=== PATIENT | female | born 1940 | race African-American/Black ===

== ENCOUNTER 2018-03-03 12:16 | Inpatient (IN) | payer MEDICARE, OTHER ==
[~2018-03-03] VITALS: Ht 170.2 cm; Wt 89.8 kg
[~2018-03-03 12:16] MED LIST: GUAI1TBM14 PO; OLME20TA14 PO; TRIA1CAP35 PO
[2018-03-03 15:29] LABS: BASOPHILS % 0.4 % (0.0-2.0); EOSINOPHILS % 0.8 % (0.0-5.0); HEMATOCRIT. 40.3 % (36.0-48.0); HEMOGLOBIN. 13.4 g/dL (12.0-16.0); LYMPHOCYTES % 41.8 % (20.0-50.0); MEAN CORPUSCULAR HEMOGLOBIN 29.4 pg (28.0-32.0); MEAN CORPUSCULAR VOLUME 88.3 fL (81.0-99.0); MEAN PLATELET VOLUME 9.3 fl (7.4-10.4); MONOCYTES % 7.8 % (2.0-8.0); NEUTROPHILS % 49.2 % (40.0-76.0); PLATELET 213 x1000/uL (130-400); RED BLOOD CELL COUNT 4.56 mill/uL (4.2-5.4); RED CELL DISTRIBUTION WIDTH 14.3 % (11.6-14.6)
[2018-03-03 15:36] LABS: CHLORIDE 106 mEq/L (98-107)
[2018-03-03 15:40] LABS: D-DIMER 1.3 mg/L FEU (<0.50); PARTIAL THROMBOPLASTIN TIME 25.4 sec (23.4-31.0); PROTHROMBIN TIME 10.2 sec (9.1-11.1)
[2018-03-03] MEDS ORDERED: IOHEXOL-350 100 ML BOTTLE ONE (16:42)
[2018-03-03 17:27] LABS: BG BASE EXCESS -5.2 mmol/L (-2.0-2.0); BG CARBOXYHEMOGLOBIN 0.7 % (0.5-1.5); BG DEOXYHEMOGLOBIN 4.3 % (0.0-5.0); BG FRACTION INSPIRED OXYGEN 21; BG HCO3 ACT 19.4 mmol/L (22.0-26.0); BG OXYGEN SATURATION 95.7 % (92.0-98.5); BG PCO2 35.1 mmHg (35.0-45.0); BG PH 7.361 (7.350-7.450); BG PO2 87.9 mmHg (75.0-100.0); BG SAMPLE SITE RIGHT RADIAL; BG TOTAL HEMOGLOBIN 13.9 g/dL (12.0-18.0); BG VENT MODE ROOM AIR
[2018-03-03] MEDS ORDERED: ACETAMINOPHEN 325MG TABLET PO PRN (20:15)
[2018-03-03] MEDS ORDERED: IPRATROPIUM/ALBUTEROL 0.5-3(2.5)MG/3ML NEB INH PRN (20:15)
[2018-03-03] MEDS ORDERED: CLONIDINE 0.1MG TABLET PO PRN (20:15)
[2018-03-03] MEDS ORDERED: GUAIFENESIN 200MG/10ML SUGAR FREE UDC PO PRN (20:15)
[2018-03-03] MEDS ORDERED: DIPHENHYDRAMINE 50MG/ML VIAL IV PRN (20:15)
[2018-03-03 22:20] VITALS: BP 154/79
[2018-03-03] MEDS ORDERED: LOSARTAN POTASSIUM 100 MG TABLET PO SCH (22:27)
[2018-03-03] MEDS ORDERED: BUDESONIDE 0.5MG/2ML NEB HHN SCH (22:28)
[2018-03-03] MEDS: SODIUM CHLORIDE 0.9% INJ 3ML FLUSH IVF SCH (23:03)
[2018-03-03] MEDS ORDERED: TEMAZEPAM 15MG CAPSULE PO PRN (23:30)
[2018-03-03] MEDS ORDERED: ALPRAZOLAM 0.25 MG TABLET PO PRN (23:30)
[2018-03-04] VITALS: BP 123/51
[2018-03-04 04:00] VITALS: BP 125/60
[2018-03-04] MEDS: SODIUM CHLORIDE 0.9% INJ 3ML FLUSH IVF SCH (06:03)
[2018-03-04 08:00] VITALS: BP 123/60
[2018-03-04] MEDS ORDERED: TRIAMTERENE/HYDROCHLOROTHIAZIDE 37.5/25MG CAPSULE PO SCH (09:00)
[2018-03-04 12:00] VITALS: BP 145/81
== END 2018-03-04 12:00 | disposition home or self-care (01) | DRG 880 ==
LOC: ER 12:16 → ENRESERV 21:33 → 6WST 22:23
PROVIDERS: ADMIT Internal Medicine; ATTEND Internal Medicine
DX: F41.9 Anxiety disorder, unspecified (principal); I10 Essential (primary) hypertension; Z96.653 Presence of artificial knee joint, bilateral; Z82.49 Family history of ischemic heart disease and other diseases of the circulatory system; Z86.711 Personal history of pulmonary embolism; Z86.718 Personal history of other venous thrombosis and embolism; Z88.8 Allergy status to other drugs, medicaments and biological substances; Z88.7 Allergy status to serum and vaccine; Z79.899 Other long term (current) drug therapy
CPT/HCPCS: 36415; 36600; 71045; 71275; 80053; 82375; 82805; 83880; 84484; 85025; 85379; 85610; 85730; 93005; 93880; 93970; 99285; Q9967

== ENCOUNTER 2021-04-11 02:17 | Emergency (ER) | payer MEDICARE, MEDICAID ==
[~2021-04-11] VITALS: Ht 170.2 cm; Wt 87.0 kg
[~2021-04-11 02:17] MED LIST changes: +OLME20TA13 PO; -OLME20TA14 PO
[2021-04-11] MEDS ORDERED: ACETAMINOPHEN 325MG TABLET PO ONE (02:45)
[2021-04-11] MEDS ORDERED: ACET-2708 MT (04:52)
[2021-04-11 05:11] VITALS: BP 173/95
== END 2021-04-11 05:19 | disposition home or self-care (01) ==
LOC: ER 02:17
DX: S00.83XA Contusion of other part of head, initial encounter (principal); I10 Essential (primary) hypertension; Z88.5 Allergy status to narcotic agent; W01.0XXA Fall on same level from slipping, tripping and stumbling without subsequent striking against object, initial encounter; Y93.89 Activity, other specified; Y92.89 Other specified places as the place of occurrence of the external cause; Y99.8 Other external cause status
CPT/HCPCS: 70486; 99285

== ENCOUNTER 2021-04-15 20:41 | Emergency (ER) | payer MEDICARE, MEDICAID ==
[~2021-04-15] VITALS: Ht 167.6 cm; Wt 86.0 kg
[~2021-04-15 20:41] MED LIST changes: +ACET-2708 MT
[2021-04-15] MEDS ORDERED: SODIUM CHLORIDE 0.9% 1,000 ML IV ONE (23:00)
[2021-04-15] MEDS ORDERED: MORPHINE SULFATE 2 MG/ML CPJ (NOT FOR IM USE) IV ONE (23:00)
[2021-04-15 23:43] LABS: BASOPHILS % 0.2 % (0.0-2.0); HEMATOCRIT. 39.4 % (36.0-48.0); HEMOGLOBIN. 12.9 g/dL (12.0-16.0); LYMPHOCYTES % 10.1 % (20.0-50.0); MEAN CORPUSCULAR HEMOGLOBIN 29.5 pg (28.0-32.0); MEAN CORPUSCULAR VOLUME 89.8 fL (81.0-99.0); MEAN PLATELET VOLUME 8.5 fl (7.4-10.4); MONOCYTES % 4.8 % (2.0-8.0); NEUTROPHILS % 84.9 % (40.0-76.0); PLATELET 152 x1000/uL (130-400); RED BLOOD CELL COUNT 4.39 mill/uL (4.2-5.4); RED CELL DISTRIBUTION WIDTH 14.4 % (11.6-14.6)
[2021-04-15 23:47] LABS: CHLORIDE 103 mEq/L (98-107)
[2021-04-15 23:48] LABS: INR 1.1; PROTHROMBIN TIME 11.8 sec (9.6-11.0)
[2021-04-16 00:23] LABS: CLARITY URINE TURBID (CLEAR); COLOR URINE RED (YELLOW); KETONES URINE 1+ (NEGATIVE); LEUKOCYTE ESTERASE URINE 1+ (NEGATIVE); NITRITE URINE NEGATIVE (NEGATIVE); OCCULT BLOOD URINE 3+ (NEGATIVE); PROTEIN URINE 3+ (NEGATIVE); SPECIFIC GRAVITY URINE 1.023 (1.005-1.030)
[2021-04-16] MEDS ORDERED: CEFTRIAXONE 1 G PREMIX 50 ML IV ONE (03:30)
[2021-04-16] MEDS ORDERED: KETOROLAC 15MG/ML VIAL IV ONE (03:30)
[2021-04-16] MEDS ORDERED: CEPH500C2 MT (03:52)
[2021-04-16] MEDS ORDERED: PYR200 MT (03:52)
[2021-04-16] MEDS ORDERED: METHOCARBAMOL 500MG TABLET PO ONE (05:00)
[2021-04-16 05:16] VITALS: BP 153/78
== END 2021-04-16 05:18 | disposition home or self-care (01) ==
LOC: ER 20:41
DX: N39.0 Urinary tract infection, site not specified (principal); K62.89 Other specified diseases of anus and rectum; I10 Essential (primary) hypertension; W01.0XXA Fall on same level from slipping, tripping and stumbling without subsequent striking against object, initial encounter; Y93.9 Activity, unspecified; Y92.9 Unspecified place or not applicable; Z88.1 Allergy status to other antibiotic agents; Z88.8 Allergy status to other drugs, medicaments and biological substances
CPT/HCPCS: 36415; 71045; 74176; 80053; 83605; 83690; 85025; 85610; 86850; 86900; 86901; 87086; 93005; 96361; 96365; 96375; 99285; J0696; J1885; J2270; J7030; A4315

== ENCOUNTER 2021-04-17 02:38 | Inpatient (IN) | payer MEDICARE, MEDICAID ==
[~2021-04-17] VITALS: Ht 170.2 cm; Wt 87.1 kg
[~2021-04-17 02:38] MED LIST changes: +CEPH500C2 MT; +PYR200 MT
[2021-04-17] MEDS ORDERED: ACETAMINOPHEN WITH CODEINE 300/30MG TABLET PO ONE (03:15)
[2021-04-17] MEDS ORDERED: MORPHINE SULFATE 10 MG/ML CPJ IM ONE (05:45)
[2021-04-17] MEDS ORDERED: SODIUM CHLORIDE 0.9% 250 ML IV ONE (06:15)
[2021-04-17 06:49] LABS: BASOPHILS % 0.3 % (0.0-2.0); EOSINOPHILS % 0.8 % (0.0-5.0); HEMATOCRIT. 38.2 % (36.0-48.0); HEMOGLOBIN. 12.4 g/dL (12.0-16.0); LYMPHOCYTES % 20.4 % (20.0-50.0); MEAN CORPUSCULAR HEMOGLOBIN 29.2 pg (28.0-32.0); MEAN CORPUSCULAR VOLUME 90.1 fL (81.0-99.0); MEAN PLATELET VOLUME 8.8 fl (7.4-10.4); NEUTROPHILS % 71.5 % (40.0-76.0); PLATELET 126 x1000/uL (130-400); RED BLOOD CELL COUNT 4.24 mill/uL (4.2-5.4)
[2021-04-17 06:54] LABS: CHLORIDE 104 mEq/L (98-107)
[2021-04-17 06:55] LABS: INR 1.1; PROTHROMBIN TIME 11.7 sec (9.6-11.0)
[2021-04-17 10:00] VITALS: BP 140/81
[2021-04-17] MEDS ORDERED: MAGNESIUM/ALUMINUM HYDROXIDE/SIMETHICONE 30ML UDC PO PRN (10:30)
[2021-04-17] MEDS ORDERED: CLONIDINE 0.1MG TABLET PO PRN (10:30)
[2021-04-17] MEDS ORDERED: ONDANSETRON HCL 4MG/2ML INJ IV PRN (10:30)
[2021-04-17] MEDS ORDERED: ACETAMINOPHEN 325MG TABLET PO PRN (10:30)
[2021-04-17] MEDS ORDERED: DOCUSATE SODIUM 100MG CAPSULE PO PRN (10:30)
[2021-04-17] MEDS ORDERED: IPRATROPIUM/ALBUTEROL 0.5-3(2.5)MG/3ML NEB HHN PRN (10:30)
[2021-04-17] MEDS ORDERED: NALOXONE HCL 0.4MG/ML VIAL IV PRN (11:00)
[2021-04-17] MEDS: SODIUM CHLORIDE 0.9% 1,000 ML IV SCH (11:00)
[2021-04-17 12:00] VITALS: BP 110/63
[2021-04-17] MEDS: OMEPRAZOLE 20MG CAPSULE EXTENDED RELEASE PO SCH (12:49)
[2021-04-17] MEDS: ENOXAPARIN 40MG/0.4ML SYR SUBCUT SCH (12:52)
[2021-04-17 16:00] VITALS: BP 114/60
[2021-04-17 16:12] LABS: CLARITY URINE TURBID (CLEAR); COLOR URINE ORANGE (YELLOW); KETONES URINE NEGATIVE (NEGATIVE); LEUKOCYTE ESTERASE URINE 1+ (NEGATIVE); NITRITE URINE POSITIVE (NEGATIVE); OCCULT BLOOD URINE 3+ (NEGATIVE); PROTEIN URINE 2+ (NEGATIVE); SPECIFIC GRAVITY URINE 1.017 (1.005-1.030)
[2021-04-17] MEDS ORDERED: CEFTRIAXONE 1 G PREMIX 50 ML IV SCH (17:00)
[2021-04-17] MEDS ORDERED: CEFTRIAXONE 1,000 MG in DEXTROSE 5% WATER 50 ML IV SCH (18:00)
[2021-04-17] MEDS ORDERED: *PATIENT'S OWN MEDICATION STORAGE XX SCH (19:00)
[2021-04-17] MEDS: CEFTRIAXONE 1,000 MG in DEXTROSE 5% WATER 50 ML IV SCH (20:00)
[2021-04-18] MEDS: HYDROCODONE/ACETAMINOPHEN 5/325MG TABLET PO PRN ×2 (04:32→16:13)
[2021-04-18] MEDS: SODIUM CHLORIDE 0.9% 1,000 ML IV SCH ×2 (04:32→20:29)
[2021-04-18] MEDS: OMEPRAZOLE 20MG CAPSULE EXTENDED RELEASE PO SCH (07:20)
[2021-04-18 08:00] VITALS: BP 107/64
[2021-04-18 08:00] LABS: BASOPHILS % 0.2 % (0.0-2.0); EOSINOPHILS % 0.8 % (0.0-5.0); HEMATOCRIT. 36.1 % (36.0-48.0); HEMOGLOBIN. 11.7 g/dL (12.0-16.0); LYMPHOCYTES % 22.1 % (20.0-50.0); MEAN CORPUSCULAR HEMOGLOBIN 28.8 pg (28.0-32.0); MEAN CORPUSCULAR VOLUME 89.1 fL (81.0-99.0); MEAN PLATELET VOLUME 9.2 fl (7.4-10.4); MONOCYTES % 7.9 % (2.0-8.0); PLATELET 129 x1000/uL (130-400); RED BLOOD CELL COUNT 4.05 mill/uL (4.2-5.4)
[2021-04-18] MEDS: ENOXAPARIN 40MG/0.4ML SYR SUBCUT SCH (10:25)
[2021-04-18 12:00] VITALS: BP 117/77
[2021-04-18] MEDS ORDERED: CYCLOBENZAPRINE 10MG TABLET PO PRN (13:45)
[2021-04-18 16:00] VITALS: BP 124/76
[2021-04-18] MEDS: LIDOCAINE 5% PATCH TOP SCH (16:09)
[2021-04-18] MEDS: ENOXAPARIN 100MG/ML SYR SUBCUT SCH (17:52)
[2021-04-18 20:00] VITALS: BP 124/70
[2021-04-18] MEDS: CEFTRIAXONE 1,000 MG in DEXTROSE 5% WATER 50 ML IV SCH (20:29)
[2021-04-19] VITALS: BP 99/69
[2021-04-19 04:00] VITALS: BP 132/67
[2021-04-19] MEDS: HYDROCODONE/ACETAMINOPHEN 5/325MG TABLET PO PRN ×5 (04:59→22:58)
[2021-04-19] MEDS: OMEPRAZOLE 20MG CAPSULE EXTENDED RELEASE PO SCH (06:08)
[2021-04-19] MEDS: ENOXAPARIN 100MG/ML SYR SUBCUT SCH ×2 (06:08→18:00)
[2021-04-19 07:53] LABS: BASOPHILS % 0.3 % (0.0-2.0); EOSINOPHILS % 0.2 % (0.0-5.0); HEMATOCRIT. 36.2 % (36.0-48.0); HEMOGLOBIN. 11.7 g/dL (12.0-16.0); LYMPHOCYTES % 15.2 % (20.0-50.0); MEAN CORPUSCULAR HEMOGLOBIN 28.9 pg (28.0-32.0); MEAN CORPUSCULAR VOLUME 89.8 fL (81.0-99.0); MEAN PLATELET VOLUME 9.7 fl (7.4-10.4); MONOCYTES % 7.3 % (2.0-8.0); PLATELET 130 x1000/uL (130-400); RED BLOOD CELL COUNT 4.03 mill/uL (4.2-5.4); RED CELL DISTRIBUTION WIDTH 13.9 % (11.6-14.6)
[2021-04-19 08:00] VITALS: BP_SYST 111; BP_SYST 134; BP_DIAS 63; BP_DIAS 74
[2021-04-19] MEDS: LIDOCAINE 5% PATCH TOP SCH (09:52)
[2021-04-19 12:00] VITALS: BP 111/63
[2021-04-19 14:28] LABS: CLARITY URINE TURBID (CLEAR); COLOR URINE RED (YELLOW); KETONES URINE 2+ (NEGATIVE); LEUKOCYTE ESTERASE URINE 3+ (NEGATIVE); NITRITE URINE POSITIVE (NEGATIVE); OCCULT BLOOD URINE 3+ (NEGATIVE); PROTEIN URINE 3+ (NEGATIVE); SPECIFIC GRAVITY URINE 1.013 (1.005-1.030)
[2021-04-19 16:00] VITALS: BP 107/71
[2021-04-19] MEDS: SODIUM CHLORIDE 0.9% 1,000 ML IV SCH (17:10)
[2021-04-19 20:00] VITALS: BP 126/71
[2021-04-19] MEDS: CEFTRIAXONE 1,000 MG in DEXTROSE 5% WATER 50 ML IV SCH (20:59)
[2021-04-20] VITALS: BP 142/73
[2021-04-20 04:00] VITALS: BP 100/75
[2021-04-20] MEDS: HYDROCODONE/ACETAMINOPHEN 5/325MG TABLET PO PRN ×3 (05:28→21:34)
[2021-04-20] MEDS: SODIUM CHLORIDE 0.9% 1,000 ML IV SCH ×2 (05:28→21:32)
[2021-04-20] MEDS: ENOXAPARIN 100MG/ML SYR SUBCUT SCH ×2 (05:41→18:48)
[2021-04-20] MEDS: OMEPRAZOLE 20MG CAPSULE EXTENDED RELEASE PO SCH (06:30)
[2021-04-20 08:00] VITALS: BP 120/68
[2021-04-20] MEDS: LIDOCAINE 5% PATCH TOP SCH (09:18)
[2021-04-20 12:00] VITALS: BP 123/71
[2021-04-20 16:00] VITALS: BP 120/66
[2021-04-20 20:00] VITALS: BP 122/62
[2021-04-20] MEDS: CEFTRIAXONE 1,000 MG in DEXTROSE 5% WATER 50 ML IV SCH (21:31)
[2021-04-21] VITALS: BP 137/69
[2021-04-21 04:00] VITALS: BP 137/69
[2021-04-21] MEDS: OMEPRAZOLE 20MG CAPSULE EXTENDED RELEASE PO SCH (06:04)
[2021-04-21 08:00] VITALS: BP 137/80
[2021-04-21 08:03] LABS: CHLORIDE 106 mEq/L (98-107)
[2021-04-21 08:14] LABS: BASOPHILS % 0.4 % (0.0-2.0); EOSINOPHILS % 1.3 % (0.0-5.0); HEMATOCRIT. 34.1 % (36.0-48.0); LYMPHOCYTES % 23.2 % (20.0-50.0); MEAN CORPUSCULAR VOLUME 89.6 fL (81.0-99.0); MEAN PLATELET VOLUME 9.6 fl (7.4-10.4); MONOCYTES % 8.8 % (2.0-8.0); NEUTROPHILS % 66.3 % (40.0-76.0); PLATELET 144 x1000/uL (130-400); RED BLOOD CELL COUNT 3.81 mill/uL (4.2-5.4); RED CELL DISTRIBUTION WIDTH 13.7 % (11.6-14.6)
[2021-04-21] MEDS: LIDOCAINE 5% PATCH TOP SCH (10:45)
[2021-04-21 12:00] VITALS: BP 128/87
[2021-04-21] MEDS ORDERED: BUPIVACAINE HCL 0.25% (2.5MG/ML) 50ML INFIL NR (12:00)
[2021-04-21] MEDS ORDERED: LIDOCAINE HCL 1% 20ML VIAL (Pyxis) INJ INFIL NR (12:00)
[2021-04-21] MEDS ORDERED: TRIAMCINOLONE ACETONIDE 40MG/ML 1ML VIAL IM NR (12:00)
[2021-04-21] MEDS ORDERED: SIMETHICONE 80MG TABLET CHEW PO PRN (13:15)
[2021-04-21] MEDS: SODIUM CHLORIDE 0.9% 1,000 ML IV SCH (15:20)
[2021-04-21 16:00] VITALS: BP 122/53
[2021-04-21] MEDS: FUROSEMIDE 20MG TABLET PO SCH (18:35)
[2021-04-21 20:00] VITALS: BP 134/69
[2021-04-21] MEDS: CEFTRIAXONE 1,000 MG in DEXTROSE 5% WATER 50 ML IV SCH (20:05)
[2021-04-21] MEDS ORDERED: DOXYCYCLINE HYCLATE 100MG CAPSULE PO SCH (22:30)
[2021-04-22] VITALS: BP 130/70
[2021-04-22] MEDS: HYDROCODONE/ACETAMINOPHEN 5/325MG TABLET PO PRN ×2 (02:46→19:44)
[2021-04-22 04:00] VITALS: BP 121/76
[2021-04-22] MEDS: OMEPRAZOLE 20MG CAPSULE EXTENDED RELEASE PO SCH (06:23)
[2021-04-22 07:13] LABS: BASOPHILS % 0.4 % (0.0-2.0); HEMATOCRIT. 32.1 % (36.0-48.0); HEMOGLOBIN. 10.5 g/dL (12.0-16.0); LYMPHOCYTES % 19.7 % (20.0-50.0); MEAN CORPUSCULAR HEMOGLOBIN 29.4 pg (28.0-32.0); MEAN CORPUSCULAR VOLUME 89.6 fL (81.0-99.0); MEAN PLATELET VOLUME 9.3 fl (7.4-10.4); MONOCYTES % 8.5 % (2.0-8.0); NEUTROPHILS % 70.4 % (40.0-76.0); PLATELET 140 x1000/uL (130-400); RED BLOOD CELL COUNT 3.58 mill/uL (4.2-5.4); RED CELL DISTRIBUTION WIDTH 13.5 % (11.6-14.6)
[2021-04-22 07:37] LABS: CHLORIDE 105 mEq/L (98-107)
[2021-04-22 08:00] VITALS: BP 143/78
[2021-04-22] MEDS: FUROSEMIDE 20MG TABLET PO SCH (08:46)
[2021-04-22] MEDS: LIDOCAINE 5% PATCH TOP SCH (09:00)
[2021-04-22 12:00] VITALS: BP 136/80
[2021-04-22 16:00] VITALS: BP_SYST 117; BP_SYST 143; BP_SYST 157; BP_DIAS 63; BP_DIAS 75; BP_DIAS 78
[2021-04-22] MEDS ORDERED: NALOXONE HCL 0.4MG/ML VIAL IV PRN (19:45)
[2021-04-22 20:00] VITALS: BP 108/78
[2021-04-22] MEDS: CEFTRIAXONE 1,000 MG in DEXTROSE 5% WATER 50 ML IV SCH (20:33)
[2021-04-23] VITALS: BP 123/81
[2021-04-23 04:00] VITALS: BP 138/72
[2021-04-23] MEDS: HYDROCODONE/ACETAMINOPHEN 5/325MG TABLET PO PRN ×2 (05:14→19:50)
[2021-04-23] MEDS: OMEPRAZOLE 20MG CAPSULE EXTENDED RELEASE PO SCH (06:22)
[2021-04-23 08:00] VITALS: BP 119/77
[2021-04-23 08:10] LABS: BASOPHILS % 0.2 % (0.0-2.0); EOSINOPHILS % 0.7 % (0.0-5.0); HEMATOCRIT. 30.8 % (36.0-48.0); HEMOGLOBIN. 10.2 g/dL (12.0-16.0); LYMPHOCYTES % 11.7 % (20.0-50.0); MEAN CORPUSCULAR HEMOGLOBIN 29.5 pg (28.0-32.0); MEAN CORPUSCULAR VOLUME 89.5 fL (81.0-99.0); MEAN PLATELET VOLUME 9.7 fl (7.4-10.4); MONOCYTES % 8.6 % (2.0-8.0); NEUTROPHILS % 78.8 % (40.0-76.0); PLATELET 120 x1000/uL (130-400); RED BLOOD CELL COUNT 3.44 mill/uL (4.2-5.4); RED CELL DISTRIBUTION WIDTH 13.3 % (11.6-14.6)
[2021-04-23 08:19] LABS: CHLORIDE 101 mEq/L (98-107)
[2021-04-23] MEDS: FUROSEMIDE 20MG TABLET PO SCH (09:44)
[2021-04-23] MEDS: LIDOCAINE 5% PATCH TOP SCH (09:45)
[2021-04-23 12:00] VITALS: BP 127/81
[2021-04-23 16:00] VITALS: BP 135/71
[2021-04-23 20:00] VITALS: BP 117/63
== END 2021-04-23 22:41 | DRG 300 ==
LOC: ER 02:38 → 6EST 06:38 → ENRESERV 07:16 → 6EST 08:58
PROVIDERS: ADMIT Internal Medicine; ATTEND Internal Medicine
DX: I82.411 Acute embolism and thrombosis of right femoral vein (principal); G82.20 Paraplegia, unspecified; N17.9 Acute kidney failure, unspecified; N39.0 Urinary tract infection, site not specified; S37.22XA Contusion of bladder, initial encounter; K80.20 Calculus of gallbladder without cholecystitis without obstruction; M48.061 Spinal stenosis, lumbar region without neurogenic claudication; D69.6 Thrombocytopenia, unspecified; K59.00 Constipation, unspecified; G89.29 Other chronic pain; I10 Essential (primary) hypertension; M17.0 Bilateral primary osteoarthritis of knee; M51.26 Other intervertebral disc displacement, lumbar region; R53.81 Other malaise; I82.431 Acute embolism and thrombosis of right popliteal vein; M47.816 Spondylosis without myelopathy or radiculopathy, lumbar region; K62.89 Other specified diseases of anus and rectum; X58.XXXA Exposure to other specified factors, initial encounter; Z82.49 Family history of ischemic heart disease and other diseases of the circulatory system; Z86.711 Personal history of pulmonary embolism; Z86.718 Personal history of other venous thrombosis and embolism; Z91.81 History of falling; Z95.828 Presence of other vascular implants and grafts; Z98.1 Arthrodesis status; Z88.7 Allergy status to serum and vaccine; Z79.899 Other long term (current) drug therapy; Z79.1 Long term (current) use of non-steroidal anti-inflammatories (NSAID); Y93.89 Activity, other specified; Y92.89 Other specified places as the place of occurrence of the external cause; Y99.8 Other external cause status
CPT/HCPCS: 36415; 71045; 72131; 72148; 73560; 74176; 76770; 76830; 76856; 80048; 80053; 80076; 81003; 83735; 84100; 84145; 85025; 93005; 93923; 93970; 97162; 97166; 99285; C1893; J0696; J1650; J2270; J3301; J3490; J7030; J7050; J7060

== ENCOUNTER 2021-04-23 22:31 | Inpatient (IN) | payer MEDICARE, MEDICAID ==
[~2021-04-23] VITALS: Ht 170.2 cm; Wt 87.1 kg
[2021-04-23 22:31] VITALS: BP 114/74
[2021-04-23] MEDS ORDERED: NALOXONE HCL 0.4 MG/ML 1ML VIAL IV PRN (23:30)
[2021-04-23] MEDS ORDERED: CYCLOBENZAPRINE 10MG TABLET PO PRN (23:30)
[2021-04-23] MEDS ORDERED: ACETAMINOPHEN 325MG TABLET PO PRN (23:30)
[2021-04-23] MEDS ORDERED: ONDANSETRON HCL 4MG/2ML INJ IV PRN (23:30)
[2021-04-23] MEDS ORDERED: MAGNESIUM/ALUMINUM HYDROXIDE/SIMETHICONE 30ML UDC PO PRN (23:30)
[2021-04-23] MEDS ORDERED: CLONIDINE 0.1MG TABLET PO PRN (23:30)
[2021-04-23] MEDS ORDERED: DOCUSATE SODIUM 100MG CAPSULE PO PRN (23:30)
[2021-04-23] MEDS ORDERED: IPRATROPIUM/ALBUTEROL 0.5-3(2.5)MG/3ML NEB HHN PRN (23:30)
[2021-04-24] MEDS ORDERED: *PATIENT'S OWN MEDICATION STORAGE XX SCH (00:15)
[2021-04-24] MEDS ORDERED: SIMETHICONE 80MG TABLET CHEW PO PRN (01:00)
[2021-04-24] MEDS: HYDROCODONE/ACETAMINOPHEN 5/325MG TABLET PO PRN (01:12)
[2021-04-24 08:00] VITALS: BP 135/80
[2021-04-24] MEDS ORDERED: NON FORMULARY PATIENT HOME MED XX SCH (09:00)
[2021-04-24] MEDS: LIDOCAINE 5% PATCH TOP SCH (09:05)
[2021-04-24] MEDS: FUROSEMIDE 20MG TABLET PO SCH (09:05)
[2021-04-24 10:26] LABS: BASOPHILS % 0.5 % (0.0-2.0); EOSINOPHILS % 0.6 % (0.0-5.0); HEMATOCRIT. 32.6 % (36.0-48.0); HEMOGLOBIN. 10.9 g/dL (12.0-16.0); LYMPHOCYTES % 14.1 % (20.0-50.0); MEAN CORPUSCULAR HEMOGLOBIN 29.9 pg (28.0-32.0); MEAN CORPUSCULAR VOLUME 89.2 fL (81.0-99.0); MEAN PLATELET VOLUME 8.5 fl (7.4-10.4); NEUTROPHILS % 77.8 % (40.0-76.0); PLATELET 139 x1000/uL (130-400); RED BLOOD CELL COUNT 3.66 mill/uL (4.2-5.4); RED CELL DISTRIBUTION WIDTH 13.5 % (11.6-14.6)
[2021-04-24 10:52] LABS: CHLORIDE 98 mEq/L (98-107)
[2021-04-24] MEDS: DOXYCYCLINE 100 MG in DEXT 5% WATER 100 ML IV SCH (15:00)
[2021-04-24 20:00] VITALS: BP 149/78
[2021-04-25] MEDS: DOXYCYCLINE 100 MG in DEXT 5% WATER 100 ML IV SCH ×2 (01:49→14:45)
[2021-04-25 07:51] VITALS: BP 133/67
[2021-04-25 08:46] LABS: BASOPHILS % 0.3 % (0.0-2.0); EOSINOPHILS % 0.7 % (0.0-5.0); HEMATOCRIT. 29.5 % (36.0-48.0); HEMOGLOBIN. 9.8 g/dL (12.0-16.0); MEAN CORPUSCULAR HEMOGLOBIN 29.2 pg (28.0-32.0); MEAN CORPUSCULAR VOLUME 87.7 fL (81.0-99.0); MONOCYTES % 8.4 % (2.0-8.0); NEUTROPHILS % 76.6 % (40.0-76.0); PLATELET 131 x1000/uL (130-400); RED BLOOD CELL COUNT 3.36 mill/uL (4.2-5.4); RED CELL DISTRIBUTION WIDTH 13.4 % (11.6-14.6)
[2021-04-25] MEDS: FUROSEMIDE 20MG TABLET PO SCH (08:50)
[2021-04-25] MEDS: LIDOCAINE 5% PATCH TOP SCH (08:51)
[2021-04-25 09:29] LABS: CHLORIDE 100 mEq/L (98-107)
[2021-04-25 09:50] LABS: TOTAL IRON BINDING CAPACITY 217 ug/dL (250-450)
[2021-04-25 11:26] LABS: FERRITIN 511 ng/mL (10-291)
[2021-04-25 12:16] LABS: FOLIC ACID (FOLATE) SERUM > 20.00 ng/mL (>5.38); VITAMIN B12 SERUM > 2000.0 pg/mL (211-911)
[2021-04-25 19:03] LABS: CLARITY URINE CLEAR (CLEAR); COLOR URINE YELLOW (YELLOW); KETONES URINE NEGATIVE (NEGATIVE); LEUKOCYTE ESTERASE URINE NEGATIVE (NEGATIVE); NITRITE URINE NEGATIVE (NEGATIVE); OCCULT BLOOD URINE 1+ (NEGATIVE); PH URINE 5.5 (4.5-8.0); PROTEIN URINE NEGATIVE (NEGATIVE); SPECIFIC GRAVITY URINE 1.016 (1.005-1.030); UROBILINOGEN URINE 0.2 E.U./dL (0.2-1.0)
[2021-04-25 20:00] VITALS: BP 139/70
[2021-04-26] MEDS: HYDROCODONE/ACETAMINOPHEN 5/325MG TABLET PO PRN (02:12)
[2021-04-26 08:05] VITALS: BP 124/69
[2021-04-26 08:38] LABS: BASOPHILS % 0.4 % (0.0-2.0); EOSINOPHILS % 0.6 % (0.0-5.0); HEMATOCRIT. 28.5 % (36.0-48.0); HEMOGLOBIN. 9.5 g/dL (12.0-16.0); LYMPHOCYTES % 15.6 % (20.0-50.0); MEAN CORPUSCULAR HEMOGLOBIN 29.4 pg (28.0-32.0); MEAN CORPUSCULAR VOLUME 88.3 fL (81.0-99.0); MEAN PLATELET VOLUME 9.1 fl (7.4-10.4); MONOCYTES % 8.9 % (2.0-8.0); NEUTROPHILS % 74.5 % (40.0-76.0); PLATELET 129 x1000/uL (130-400); RED BLOOD CELL COUNT 3.23 mill/uL (4.2-5.4); RED CELL DISTRIBUTION WIDTH 13.3 % (11.6-14.6)
[2021-04-26] MEDS: FUROSEMIDE 20MG TABLET PO SCH (08:58)
[2021-04-26 09:00] VITALS: BP 124/69
[2021-04-26] MEDS: LIDOCAINE 5% PATCH TOP SCH (09:00)
[2021-04-26 09:26] LABS: CHLORIDE 102 mEq/L (98-107)
[2021-04-26] MEDS: APIXABAN 5 MG TABLET PO SCH ×2 (13:05→20:00)
[2021-05-01 19:06] LABS: 25-HYDROXY VITAMIN D3 25 ng/mL (.)
== END 2021-04-26 21:00 | disposition left against medical advice (07) | DRG 552 ==
LOC: MERGE 22:31
PROVIDERS: ADMIT Physical Medicine & Rehabilitation Spinal Cord Injury Medicine; ATTEND Internal Medicine
DX: M48.061 Spinal stenosis, lumbar region without neurogenic claudication (principal); N39.0 Urinary tract infection, site not specified; N17.9 Acute kidney failure, unspecified; I82.411 Acute embolism and thrombosis of right femoral vein; I82.431 Acute embolism and thrombosis of right popliteal vein; G82.20 Paraplegia, unspecified; M17.0 Bilateral primary osteoarthritis of knee; R53.81 Other malaise; D69.6 Thrombocytopenia, unspecified; I10 Essential (primary) hypertension; R20.2 Paresthesia of skin; G89.29 Other chronic pain; K62.89 Other specified diseases of anus and rectum; R31.0 Gross hematuria; K80.20 Calculus of gallbladder without cholecystitis without obstruction; M51.26 Other intervertebral disc displacement, lumbar region; Z53.29 Procedure and treatment not carried out because of patient's decision for other reasons; Z86.711 Personal history of pulmonary embolism; Z98.1 Arthrodesis status; Z82.49 Family history of ischemic heart disease and other diseases of the circulatory system; Z91.81 History of falling; Z95.828 Presence of other vascular implants and grafts
CPT/HCPCS: 36415; 80048; 80053; 81003; 82306; 82607; 82728; 82746; 83540; 83550; 84134; 84443; 85025; 93970; 97110; 97116; 97162; 97166; 97530; 97535; C1893; J3490; J7040; J7060